=== PATIENT | male | born 1990 | race Caucasian/White ===

== ENCOUNTER 2017-05-14 12:08 | Emergency (ER) | payer OTHER ==
[~2017-05-14] VITALS: Ht 182.9 cm; Wt 86.2 kg
[2017-05-14 15:10] VITALS: BP 132/82
== END 2017-05-14 15:10 | disposition home or self-care (01) ==
LOC: ED 12:08
DX: J03.90 Acute tonsillitis, unspecified (principal)
CPT/HCPCS: J0561; J1100; J1885

== ENCOUNTER 2018-06-20 07:53 | Emergency (ER) | payer OTHER ==
[~2018-06-20] VITALS: Ht 182.9 cm; Wt 95.3 kg
[2018-06-20 07:57] VITALS: Ht 182.9 cm; Wt 95.3 kg
[2018-06-20 08:31] LABS: CALCIUM 8.7 mg/dL (8.5-10.1); CARBON DIOXIDE 28.2 mmol/L (21-32); CHLORIDE SERUM 103 mmol/L (98-107); CREATININE SERUM 1.2 mg/dL (0.7-1.3); GFR1 > 60 mL/min; GLUCOSE SERUM 122 mg/dL (74-106); POTASSIUM SERUM 4.1 mmol/L (3.5-5.1); SODIUM SERUM 139 mmol/L (136-145)
[2018-06-20 08:34] LABS: PLATELET COUNT 184 x10^3mcL (130-400); RED CELL DISTRIBUTION WIDTH 12.2 % (11.5-14.5)
[2018-06-20 08:36] LABS: ALBUMIN 4.4 g/dL (3.4-5.0); ALKALINE PHOSPHATASE 73 U/L (46-116); ALT/SGPT 36 U/L (16-63); AMYLASE 23 U/L (25-115); AST/SGOT 18 U/L (15-37); LIPASE 65 IU/L (73-393); TOTAL PROTEIN, SERUM 7.7 g/dL (6.4-8.2)
[2018-06-20 09:00] LABS: BAND NEUTROPHIL 1 % (0-10); BASOPHIL 0 % (0-2); MONOCYTE 4 % (0-7); SEGMENTED NEUTROPHILS 93 % (37-75); rbc morphology (normal/abnorm) ABNORMAL (NORMAL)
[2018-06-20 09:01] LABS: PLATELET MORPHOLOGY PLATELETS DECREASED
[2018-06-20 10:15] VITALS: BP 118/54
== END 2018-06-20 10:15 | disposition home or self-care (01) ==
LOC: ED 07:53
PROVIDERS: Emergency Medicine
DX: K52.9 Noninfective gastroenteritis and colitis, unspecified (principal); Z88.0 Allergy status to penicillin
CPT/HCPCS: J1885; J2405; J7030

== ENCOUNTER 2018-12-29 18:09 | Emergency (ER) | payer OTHER ==
[~2018-12-29] VITALS: Ht 182.9 cm; Wt 89.8 kg
[2018-12-29 18:21] VITALS: Ht 182.9 cm; Wt 89.8 kg
[2018-12-29 18:50] LABS: BASOPHIL % 0.4 % (0-2); PLATELET COUNT 231 x10^3mcL (130-400)
[2018-12-29 19:00] LABS: CALCIUM 9.5 mg/dL (8.5-10.1); CARBON DIOXIDE 28.8 mmol/L (21-32); CHLORIDE SERUM 107 mmol/L (98-107); CREATININE SERUM 1.1 mg/dL (0.7-1.3); GFR1 > 60 mL/min; GLUCOSE SERUM 97 mg/dL (74-106); POTASSIUM SERUM 4.1 mmol/L (3.5-5.1); SODIUM SERUM 147 mmol/L (136-145)
[2018-12-29 19:05] LABS: ALBUMIN 4.4 g/dL (3.4-5.0); ALKALINE PHOSPHATASE 99 U/L (46-116); ALT/SGPT 28 U/L (16-63); AST/SGOT 20 U/L (15-37); BILIRUBIN TOTAL 1.11 mg/dL (0.20-1.00); TOTAL PROTEIN, SERUM 8.2 g/dL (6.4-8.2)
[2018-12-29 20:37] LABS: AMPHETAMINE QUAL UR NONE DETECTED (See below)
[2018-12-29 22:29] VITALS: BP 125/66
== END 2018-12-29 22:29 | disposition home or self-care (01) ==
LOC: ED 18:09
PROVIDERS: Specialist
DX: R07.89 Other chest pain (principal); Z88.1 Allergy status to other antibiotic agents
CPT/HCPCS: 36415; J7030; Q9967

== ENCOUNTER 2019-01-25 21:54 | Emergency (ER) | payer OTHER ==
[~2019-01-25] VITALS: Ht 182.9 cm; Wt 90.3 kg
[2019-01-25 22:02] VITALS: Ht 182.9 cm; Wt 90.3 kg
[2019-01-25 23:42] LABS: BASOPHIL % 0.3 % (0-2); PLATELET COUNT 212 x10^3mcL (130-400); RED CELL DISTRIBUTION WIDTH 13.4 % (11.5-14.5)
[2019-01-26 00:01] LABS: CALCIUM 9.3 mg/dL (8.5-10.1); CARBON DIOXIDE 33.4 mmol/L (21-32); CHLORIDE SERUM 105 mmol/L (98-107); CREATININE SERUM 1.1 mg/dL (0.7-1.3); GFR1 > 60 mL/min; GLUCOSE SERUM 98 mg/dL (74-106); POTASSIUM SERUM 3.8 mmol/L (3.5-5.1); SODIUM SERUM 144 mmol/L (136-145)
[2019-01-26 00:05] LABS: ALBUMIN 4.2 g/dL (3.4-5.0); ALKALINE PHOSPHATASE 78 U/L (46-116); ALT/SGPT 78 U/L (16-63); AST/SGOT 70 U/L (15-37); BILIRUBIN TOTAL 1.7 mg/dL (0.20-1.00); LIPASE 90 IU/L (73-393); TOTAL PROTEIN, SERUM 7.4 g/dL (6.4-8.2)
[2019-01-26 00:38] LABS: AMPHETAMINE QUAL UR NONE DETECTED (See below)
[2019-01-26 01:38] VITALS: BP 111/66
== END 2019-01-26 01:38 | disposition home or self-care (01) ==
LOC: ED 21:54
PROVIDERS: Emergency Medicine
DX: R07.89 Other chest pain (principal); R74.0 Nonspecific elevation of levels of transaminase and lactic acid dehydrogenase [LDH]; Z88.1 Allergy status to other antibiotic agents
CPT/HCPCS: 36415; 85378; G0480